=== PATIENT | female | born 1960 | race African-American/Black ===

== ENCOUNTER 2016-06-18 12:03 | Emergency (ER) | payer OTHER ==
[~2016-06-18] VITALS: Ht 162.6 cm; Wt 124.3 kg
--- NOTE | ~2016-06-18 | EKG ---
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
[~2016-06-18 12:03] MED LIST: ADULT LOW DOSE81 MG PO; ADVAIR 100-501 EACH INH; ALBUTEROL2.5 MG/31 INH; APIDRA SQ; ASPIRIN EC81 M1 PO; BACTRIM DS TAB1 EACH PO; BENICAR HCT 401 EACH PO; BENTYL 10 MG CA10 M1 PO; CARAFATE 1 GM TA1 G1 PO; CIPRO250 M1; CIPROFLOXACIN500 M1 PO; CITRATE OF MAG296 ML PO; CLARINEX5 MG PO; COLACE100 MG PO; CRESTOR10 MG PO; CYMBALTA30 MG PO; ERYTHROMYCIN250 M1 PO; FLAGYL375 MG; FLAGYL500 MG PO; HUMALOG PE100 UNIT/M SC; HUMALOG100 UNIT/2 SQ; HYDRALAZINE 2525 MG PO; HYDROCHLOROTH12.5 M2 PO; HYDROCHLOROTHIA25 M1 PO; HYDROXYCHLOROQ200 M1 PO; IBUPROFEN 600600 M1 PO; KEFLEX500 MG PO; LANTUS SC; LANTUS SQ; LANTUS100 UNIT/M SUBQ; LEVEMIR PO; LIPITOR40 MG PO; LISINOPRIL10 MG PO; LORTAB 5 MG/5001 TA1 PO; MACROBID 100 M100 M1 PO; MECLIZINE HCL25 M1 PO; MOBIC7.5 MG PO; MOTION RELIEF25 MG PO; NEURONTIN100 MG PO; NORCO 5-325 TA1 EACH PO; NORTRIPTYLINE H75 M2 PO; NOVOLOG100 UNIT/1 SQ; NOVOLOG100 UNIT/1 SUBQ; PANTOPRAZOLE SO40 M1 PO; PERCOCET 5-3251 EACH PO; PREDNISONE; PREDNISONE 5 MG5 M1 PO; PREDNISONE50 MG PO; PRILOSEC 20 MG20 MG PO; PRILOSEC40 MG; PROAIR HFA8.5 GM INH; PROMETHAZINE-C120 ML PO; PROTONIX40 MG PO; PROVENTIL HFA6.7 G1 INH; REGLAN 5 MG TAB5 M1 PO; SENEXON8.6 MG PO; TRAMADOL 50 MG50 MG PO; TRAZODONE HCL100 MG PO; XANAX 0.25 MG0.25 MG PO; ZOFRAN ODT4 MG PO; ZOFRAN4 MG PO
[2016-06-18] MEDS ORDERED: GABAPENTIN 100100 MG PO (12:12)
[2016-06-18 12:43] LABS: BASOPHILS 0.9 % (0.0-2.0); EOSINOPHILS 6.1 % (0.0-3.0); HEMATOCRIT 39.2 % (37.0-47.0); HEMOGLOBIN 13.1 gm/dL (12.0-15.0); MCH 28.5 pg (26.0-34.0); MCHC 33.4 g/dL (28.0-37.0); MCV 85.2 fL (80.0-100.0); MONOCYTES 8.3 % (1.0-8.0); PLATELET COUNT 247 thou/uL (150-400); POLYS 53.7 % (36.0-66.0); RDW 13.9 % (10.5-14.5); WBC 5.7 thou/uL (4.0-11.0)
[2016-06-18 12:44] LABS: MANUAL DIFF NO
[2016-06-18 12:54] LABS: ANION GAP 5 mmol/L (7-16); BUN 14 mg/dL (7-18); CALCIUM 9.6 mg/dL (8.5-10.1); CHLORIDE 101 mmol/L (98-107); CO2 32 mmol/L (21-32); CREATININE 0.8 mg/dL (0.6-1.3); GLUCOSE 210 mg/dL (70-99); POTASSIUM 3.5 mmol/L (3.5-5.1); SODIUM 138 mmol/L (136-145)
[2016-06-18 13:04] LABS: NT-PRO BRAIN NAT PEPTIDE 20 pg/mL (<300); TROPONIN-I < 0.04 ng/mL (<0.04-0.07)
[2016-06-18] MEDS ORDERED: XANAX 0.25 MG0.25 MG PO (13:56)
== END 2016-06-18 14:04 | disposition home or self-care (01) ==
LOC: ER 12:03
PROVIDERS: Emergency Medicine
DX: R55 Syncope and collapse (principal); F41.9 Anxiety disorder, unspecified; I10 Essential (primary) hypertension; E11.9 Type 2 diabetes mellitus without complications; E78.5 Hyperlipidemia, unspecified; E09.40 Drug or chemical induced diabetes mellitus with neurological complications with diabetic neuropathy, unspecified; Z90.49 Acquired absence of other specified parts of digestive tract; Z90.710 Acquired absence of both cervix and uterus; Z91.041 Radiographic dye allergy status

== ENCOUNTER 2016-08-22 10:22 | Emergency (ER) | payer OTHER ==
[~2016-08-22] VITALS: Ht 162.6 cm; Wt 131.5 kg
--- NOTE | ~2016-08-22 | EKG ---
[place] [address] [facility] [employer] 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
[~2016-08-22 10:22] MED LIST changes: +GABAPENTIN 100100 MG PO; +PROTONIX 20 MG20 M1 PO; +ZANTAC 150MG T150 MG PO
[2016-08-22 11:00] LABS: URINE BILIRUBIN NEGATIVE (Negative); URINE BLOOD NEGATIVE (Negative); URINE COLOR YELLOW; URINE GLUCOSE-RANDOM* NEGATIVE (Negative); URINE KETONES NEGATIVE (Negative); URINE NITRITE NEGATIVE (Negative); URINE PROTEIN (DIPSTICK) NEGATIVE (Negative); URINE UROBILINOGEN 0.2 E.U./dl (0.2-1.0)
[2016-08-22 11:05] LABS: ABSOLUTE NEUTROPHILS 4.1 thou/uL (1.4-8.2); BASOPHILS 0.5 % (0.0-2.0); EOSINOPHILS 2.7 % (0.0-3.0); HEMATOCRIT 38.1 % (37.0-47.0); HEMOGLOBIN 12.5 gm/dL (12.0-15.0); LYMPHOCYTES 17.3 % (24.0-44.0); MCH 28.7 pg (26.0-34.0); MCHC 32.9 g/dL (28.0-37.0); MCV 87.3 fL (80.0-100.0); MONOCYTES 6.9 % (1.0-8.0); PLATELET COUNT 245 thou/uL (150-400); POLYS 72.6 % (36.0-66.0); RBC 4.36 mil/uL (4.20-5.00); RDW 14.3 % (10.5-14.5); WBC 5.6 thou/uL (4.0-11.0)
[2016-08-22 11:07] LABS: MANUAL DIFF NO
[2016-08-22 11:13] LABS: ANION GAP 3 mmol/L (7-16); BUN 16 mg/dL (7-18); CALCIUM 9.3 mg/dL (8.5-10.1); CHLORIDE 104 mmol/L (98-107); CO2 33 mmol/L (21-32); CREATININE 0.9 mg/dL (0.6-1.0); GLUCOSE 150 mg/dL (74-106); POTASSIUM 4.1 mmol/L (3.5-5.1); SODIUM 140 mmol/L (136-145)
[2016-08-22 11:20] LABS: ALBUMIN 3.3 g/dL (3.4-5.0); ALKALINE PHOSPHATASE 70 U/L (46-116); SGOT 15 U/L (15-37); SGPT 25 U/L (30-65); TOTAL BILIRUBIN 0.5 mg/dL (<0.1-1.0); TROPONIN-I < 0.04 ng/mL (<0.04-0.07)
[2016-08-22] MEDS ORDERED: NORCO 5-325 TA1 EACH PO (15:06)
== END 2016-08-22 15:22 | disposition home or self-care (01) ==
LOC: ER 10:22
PROVIDERS: Physician Assistant
DX: N83.202 Unspecified ovarian cyst, left side (principal); N83.201 Unspecified ovarian cyst, right side; K29.70 Gastritis, unspecified, without bleeding; I10 Essential (primary) hypertension; E11.40 Type 2 diabetes mellitus with diabetic neuropathy, unspecified; E78.5 Hyperlipidemia, unspecified; Z96.41 Presence of insulin pump (external) (internal); Z90.710 Acquired absence of both cervix and uterus; Z90.49 Acquired absence of other specified parts of digestive tract; Z91.041 Radiographic dye allergy status

== ENCOUNTER 2016-08-30 18:05 | Emergency (ER) | payer OTHER ==
[~2016-08-30] VITALS: Ht 162.6 cm; Wt 131.5 kg
[2016-08-30 20:20] LABS: URINE BILIRUBIN NEGATIVE (Negative); URINE BLOOD NEGATIVE (Negative); URINE COLOR YELLOW; URINE GLUCOSE-RANDOM* NEGATIVE (Negative); URINE KETONES NEGATIVE (Negative); URINE NITRITE NEGATIVE (Negative); URINE PROTEIN (DIPSTICK) NEGATIVE (Negative); URINE UROBILINOGEN 0.2 E.U./dl (0.2-1.0)
[2016-08-30] MEDS ORDERED: NORCO 5-325 TA1 EACH PO (21:00)
[2016-08-30] MEDS ORDERED: ZOFRAN ODT4 MG PO (21:06)
== END 2016-08-30 21:21 | disposition home or self-care (01) ==
LOC: ER 18:05
PROVIDERS: Nurse Practitioner Family
DX: N83.8 Other noninflammatory disorders of ovary, fallopian tube and broad ligament (principal); E11.40 Type 2 diabetes mellitus with diabetic neuropathy, unspecified; I10 Essential (primary) hypertension; E78.00 Pure hypercholesterolemia, unspecified; Z96.41 Presence of insulin pump (external) (internal); Z90.710 Acquired absence of both cervix and uterus; Z90.49 Acquired absence of other specified parts of digestive tract; Z98.890 Other specified postprocedural states; Z91.041 Radiographic dye allergy status

== ENCOUNTER 2017-01-28 14:29 | Emergency (ER) | payer OTHER ==
[~2017-01-28] VITALS: Ht 162.6 cm; Wt 132.9 kg
[~2017-01-28 14:29] MED LIST changes: +LASIX 20 MG TAB20 MG PO
[2017-01-28] MEDS ORDERED: ALBUTEROL2.5 MG/31 INH (16:23)
[2017-01-28] MEDS ORDERED: PREDNISONE 20 M20 MG PO (16:23)
[2017-01-28] MEDS ORDERED: TESSALON PERLE100 MG PO (16:23)
[2017-01-28] MEDS ORDERED: DUONEB 2.5-0.5 M3 ML INH (16:23)
== END 2017-01-28 16:55 | disposition home or self-care (01) ==
LOC: ER 14:29
DX: J40 Bronchitis, not specified as acute or chronic (principal); I10 Essential (primary) hypertension; E11.40 Type 2 diabetes mellitus with diabetic neuropathy, unspecified; E78.5 Hyperlipidemia, unspecified; Z90.710 Acquired absence of both cervix and uterus; Z90.49 Acquired absence of other specified parts of digestive tract; Z91.041 Radiographic dye allergy status; Z79.4 Long term (current) use of insulin

== ENCOUNTER 2017-04-25 17:07 | Emergency (ER) | payer OTHER ==
[~2017-04-25] VITALS: Ht 170.2 cm; Wt 117.9 kg
[~2017-04-25 17:07] MED LIST changes: +DUONEB 2.5-0.5 M3 ML INH; +PREDNISONE 20 M20 MG PO; +TESSALON PERLE100 MG PO; +VICTOZA0.6 MG/0.1 SUBQ
[2017-04-25 18:11] LABS: URINE BILIRUBIN NEGATIVE (Negative); URINE BLOOD NEGATIVE (Negative); URINE CLARITY CLEAR; URINE COLOR YELLOW; URINE GLUCOSE-RANDOM* NEGATIVE (Negative); URINE KETONES NEGATIVE (Negative); URINE NITRITE-REFLEX NEGATIVE (Negative); URINE PROTEIN (DIPSTICK) NEGATIVE (Negative); URINE UROBILINOGEN 0.2 E.U./dl (0.2-1.0)
[2017-04-25 18:12] LABS: URINE LEUKOCYTES-REFLEX 1+ (Negative)
[2017-04-25 18:29] LABS: ABSOLUTE NEUTROPHILS 3.3 thou/uL (1.4-8.2); BASOPHILS 1.2 % (0.0-2.0); EOSINOPHILS 4.3 % (0.0-3.0); HEMATOCRIT 40.7 % (37.0-47.0); HEMOGLOBIN 13.6 gm/dL (12.0-15.0); LYMPHOCYTES 36.4 % (24.0-44.0); MCH 28.6 pg (26.0-34.0); MCHC 33.3 g/dL (28.0-37.0); MONOCYTES 6.7 % (1.0-8.0); PLATELET COUNT 269 thou/uL (150-400); POLYS 51.4 % (36.0-66.0); RBC 4.73 mil/uL (4.20-5.00); RDW 13.8 % (10.5-14.5); WBC 6.4 thou/uL (4.0-11.0)
[2017-04-25 18:33] LABS: CALCIUM 10.3 mg/dL (8.5-10.1); CREATININE 0.9 mg/dL (0.6-1.0); POTASSIUM 4.3 mmol/L (3.5-5.1)
[2017-04-25 18:39] LABS: ALBUMIN 3.8 g/dL (3.4-5.0); TOTAL BILIRUBIN 0.4 mg/dL (<0.1-1.0); TOTAL PROTEIN 8.7 g/dL (6.4-8.2)
[2017-04-25 18:46] LABS: CRYSTALS None Seen /LPF (None Seen); HYALINE CASTS 0-3 Few /LPF (None Seen); MUCUS 0-3 Light strn/LPF (None Seen); SQUAMOUS >10 Many /LPF (0-3); URINE RBC 0-2 Rare /HPF (0-2)
[2017-04-25] MEDS ORDERED: TRAMADOL 50 MG50 MG PO (18:59)
[2017-04-25] MEDS ORDERED: PRILOSEC 20 MG20 MG PO (18:59)
[2017-04-25] MEDS ORDERED: AMOXICILLIN 50500 M1 PO (19:00)
[2017-04-25] MEDS ORDERED: CARAFATE 11 GM/10 M1 PO (19:17)
[2017-04-25 19:25] VITALS: BP 113/72
== END 2017-04-25 19:26 | disposition home or self-care (01) ==
LOC: ER 17:07
PROVIDERS: Emergency Medicine
DX: K21.9 Gastro-esophageal reflux disease without esophagitis (principal); N39.0 Urinary tract infection, site not specified; I10 Essential (primary) hypertension; E11.21 Type 2 diabetes mellitus with diabetic nephropathy; Z90.49 Acquired absence of other specified parts of digestive tract; Z79.4 Long term (current) use of insulin; Z91.041 Radiographic dye allergy status

== ENCOUNTER 2017-05-08 05:09 | Emergency (ER) | payer OTHER ==
[~2017-05-08] VITALS: Ht 162.6 cm; Wt 132.9 kg
--- NOTE | ~2017-05-08 | EKG ---
[place] [address] 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[place] : 1960 Requested By: Chip Pierce Order Number: [id number] MD: Javier Nuno Measurements Intervals [place] Rate: 79 P: 45 [place]: 180 QRS: 44 QRSD: 87 T: 57 QT: 373 QTc: 428 Interpretive Statements Sinus rhythm RSR' in V1 or V2, probably normal variant Compared to ECG 03/05/2017 16:31:30 No significant changes Electronically Signed On 05-08-2017 8:09:[address] FREIGHT FIRER by Javier Nuno [email or web address] <ELECTRONICALLY SIGNED> By: Javier Nuno MD, [facility] 05/08/17 0809 0535 4 Javier Nuno MD, FACC /EPI
[~2017-05-08 05:09] MED LIST changes: +AMOXICILLIN 50500 M1 PO; +CARAFATE 11 GM/10 M1 PO
[2017-05-08 05:40] LABS: HEMATOCRIT 40.9 % (37.0-47.0); HEMOGLOBIN 13.5 gm/dL (12.0-15.0); MCH 28.3 pg (26.0-34.0); MCHC 33.1 g/dL (28.0-37.0); MCV 85.7 fL (80.0-100.0); RBC 4.77 mil/uL (4.20-5.00); RDW 13.6 % (10.5-14.5); WBC 7.2 thou/uL (4.0-11.0)
[2017-05-08 05:44] LABS: ANION GAP 7 mmol/L (7-16); BUN 13 mg/dL (7-18); CALCIUM 10.4 mg/dL (8.5-10.1); CHLORIDE 99 mmol/L (98-107); CO2 31 mmol/L (21-32); CREATININE 0.8 mg/dL (0.6-1.0); GLUCOSE 163 mg/dL (74-106); POTASSIUM 3.9 mmol/L (3.5-5.1); SODIUM 137 mmol/L (136-145)
[2017-05-08 05:52] LABS: ALBUMIN 3.9 g/dL (3.4-5.0); LIPASE 156 U/L (73-393); SGOT 16 U/L (15-37); SGPT 29 U/L (30-65); TOTAL BILIRUBIN 0.4 mg/dL (<0.1-1.0); TOTAL PROTEIN 8.9 g/dL (6.4-8.2); TROPONIN-I < 0.04 ng/mL (<0.06)
[2017-05-08] MEDS ORDERED: CARAFATE 1 GM TA1 G1 PO (07:17)
[2017-05-08 07:42] VITALS: BP 112/79
== END 2017-05-08 07:42 | disposition home or self-care (01) ==
LOC: ER 05:09
PROVIDERS: Emergency Medicine
DX: R10.13 Epigastric pain (principal); I10 Essential (primary) hypertension; E11.40 Type 2 diabetes mellitus with diabetic neuropathy, unspecified; E78.5 Hyperlipidemia, unspecified; Z90.49 Acquired absence of other specified parts of digestive tract; Z90.710 Acquired absence of both cervix and uterus; Z79.4 Long term (current) use of insulin; Z91.041 Radiographic dye allergy status

== ENCOUNTER 2017-05-28 00:16 | Emergency (ER) | payer OTHER ==
[~2017-05-28] VITALS: Ht 162.6 cm; Wt 131.5 kg
[2017-05-28 00:59] LABS: HEMATOCRIT 35.4 % (37.0-47.0); MCH 28.9 pg (26.0-34.0); PLATELET COUNT 237 thou/uL (150-400); RBC 4.16 mil/uL (4.20-5.00); RDW 13.6 % (10.5-14.5); WBC 5.7 thou/uL (4.0-11.0)
[2017-05-28 01:16] LABS: CALCIUM 9.5 mg/dL (8.5-10.1); CREATININE 1.1 mg/dL (0.6-1.0); POTASSIUM 3.8 mmol/L (3.5-5.1)
[2017-05-28] MEDS ORDERED: OSELB75 PO (01:18)
[2017-05-28 01:22] LABS: ALBUMIN 3.3 g/dL (3.4-5.0); TOTAL BILIRUBIN 0.3 mg/dL (<0.1-1.0); TOTAL PROTEIN 7.8 g/dL (6.4-8.2)
[2017-05-28 01:28] LABS: ABSOLUTE NEUTROPHILS 3.2 thou/uL (1.4-8.2); ATYPICAL LYMPHS 2 %; LARGE PLATELETS OCCASIONAL; METAMYELOCYTES 1 %
[2017-05-28 01:56] VITALS: BP 134/78
== END 2017-05-28 01:59 | disposition home or self-care (01) ==
LOC: ER 00:16
PROVIDERS: Emergency Medicine
DX: J11.1 Influenza due to unidentified influenza virus with other respiratory manifestations (principal); I10 Essential (primary) hypertension; E11.9 Type 2 diabetes mellitus without complications; E78.5 Hyperlipidemia, unspecified; Z90.49 Acquired absence of other specified parts of digestive tract; Z90.710 Acquired absence of both cervix and uterus; Z91.041 Radiographic dye allergy status

== ENCOUNTER 2018-02-26 13:16 | Emergency (ER) | payer OTHER ==
[~2018-02-26] VITALS: Ht 162.6 cm; Wt 129.3 kg
--- NOTE | ~2018-02-26 | EKG ---
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 : 1960 Requested By: David Hernandez Order Number: [id number] MD: Javier Nuno Measurements Intervals [place] Rate: 77 P: 53 [place]: 192 QRS: 41 QRSD: 91 T: 47 QT: 365 QTc: 414 Interpretive Statements Sinus rhythm RSR' in V1 or V2, right VCD Baseline wander in lead(s) II,III,aVF,V2 Compared to ECG 05/08/2017 05:35:28 No significant change was found Electronically Signed On 02-26-2018 16:52:26 AUTOMATIC [employer]IEF by Javier Nuno [email or web address] <ELECTRONICALLY SIGNED> By: Javier Nuno MD, [facility] 02/26/18 2772 135 135 Javier Nuno MD, [facility] /EPI
[~2018-02-26 13:16] MED LIST changes: +OSELB75 PO
[2018-02-26 13:43] LABS: URINE BILIRUBIN NEGATIVE (Negative); URINE BLOOD NEGATIVE (Negative); URINE CLARITY CLEAR; URINE COLOR YELLOW; URINE GLUCOSE-RANDOM* NEGATIVE (Negative); URINE KETONES NEGATIVE (Negative); URINE LEUKOCYTES-REFLEX 2+ (Negative); URINE NITRITE-REFLEX NEGATIVE (Negative); URINE PROTEIN (DIPSTICK) NEGATIVE (Negative); URINE SPECIFIC GRAVITY 1.015 (1.005-1.035)
[2018-02-26] MEDS ORDERED: VITAMIN D50000 UNIT PO (13:52)
[2018-02-26] MEDS ORDERED: FIBER GUMMIES1 EACH PO (13:52)
[2018-02-26 13:59] LABS: CASTS None Seen /LPF (None Seen); CRYSTALS None Seen /LPF (None Seen); SQUAMOUS 4-10 Moderate /LPF (0-3)
[2018-02-26 14:00] LABS: BACTERIA-REFLEX 1-9 Few /HPF (None Seen); URINE RBC None Seen /HPF (0-2); URINE WBC-REFLEX 0-5 Rare /HPF (0-5)
[2018-02-26 14:11] LABS: ABSOLUTE NEUTROPHILS 4.7 thou/uL (1.4-8.2); BASOPHILS 0.8 % (0.0-2.0); EOSINOPHILS 2.1 % (0.0-3.0); HEMATOCRIT 37.7 % (37.0-47.0); HEMOGLOBIN 12.4 gm/dL (12.0-15.0); MCH 28.4 pg (26.0-34.0); MCHC 32.9 g/dL (28.0-37.0); MCV 86.3 fL (80.0-100.0); MONOCYTES 8.3 % (1.0-8.0); PLATELET COUNT 250 thou/uL (150-400); POLYS 65.8 % (36.0-66.0); RBC 4.37 mil/uL (4.20-5.00); RDW 13.7 % (10.5-14.5); WBC 7.2 thou/uL (4.0-11.0)
[2018-02-26 14:18] LABS: ANION GAP 4 mmol/L (7-16); BUN 12 mg/dL (7-18); CALCIUM 9.8 mg/dL (8.5-10.1); CHLORIDE 104 mmol/L (98-107); CO2 29 mmol/L (21-32); CREATININE 0.7 mg/dL (0.6-1.0); GLUCOSE 161 mg/dL (74-106); POTASSIUM 3.7 mmol/L (3.5-5.1); SODIUM 137 mmol/L (136-145)
[2018-02-26 14:28] LABS: ALBUMIN 3.3 g/dL (3.4-5.0); LIPASE 136 U/L (73-393); SGOT 13 U/L (15-37); SGPT 22 U/L (30-65); TOTAL BILIRUBIN 0.3 mg/dL (<0.1-1.0); TOTAL PROTEIN 7.7 g/dL (6.4-8.2); TROPONIN-I <0.06 ng/mL (<0.06)
[2018-02-26] MEDS ORDERED: NAPROSYN500 MG PO (17:08)
[2018-02-26] MEDS ORDERED: TRAMADOL 50 MG50 MG PO (17:08)
[2018-02-26 17:45] VITALS: BP 116/53
== END 2018-02-26 17:46 | disposition home or self-care (01) ==
LOC: ER 13:16
PROVIDERS: Emergency Medicine
DX: K63.89 Other specified diseases of intestine (principal); I10 Essential (primary) hypertension; E11.40 Type 2 diabetes mellitus with diabetic neuropathy, unspecified; Z79.4 Long term (current) use of insulin; Z90.49 Acquired absence of other specified parts of digestive tract; Z90.710 Acquired absence of both cervix and uterus; E78.5 Hyperlipidemia, unspecified; Z91.041 Radiographic dye allergy status